=== PATIENT | female | born 1950 | race Caucasian/White ===

== ENCOUNTER 2018-02-17 13:39 | Emergency (ER) | payer MEDICARE ==
[~2018-02-17 13:39] MED LIST: LISI-360 PO; MELA5TAB8 PO; PROM25SU8 PO
[2018-02-17 14:19] VITALS: BP 146/69; PULSE 85; RESP 18; TEMP 98.5; O2SAT 95
--- NOTE | 2018-02-17 14:42 | RADRPT ---
EXAM DATE/TIME: 02/17/2018 14:14 [place] COMPARISON: No previous studies available for comparison. INDICATIONS : Right knee pain, fall. MEDICAL HISTORY : Arthritis. SURGICAL HISTORY : Right meniscus repair ENCOUNTER: Initial ACUITY: 1 day PAIN SCORE: 8/10 LOCATION: Right anterior knee FINDINGS: Degenerative changes lateral compartment with loss of articular cartilage. Small joint effusion. De generative change of patellofemoral compartment. Fracture not appreciated. CONCLUSION: Degenerative changes lateral compartment With trace joint effusion. No fracture or Khang Banks MD FACR on February 17, 2018 at 14:39 Board Certified Radiologist. This report was verified electronically.
[2018-02-17] MEDS ORDERED: TETANUS/DIPHTHERIA TOXOID ADULT 0.5 ML VIAL IM ONE (15:30)
[2018-02-17] MEDS ORDERED: oxyCODONE/ACETAMINOPHEN 5 MG/325 MG TAB PO ONE (15:45)
[2018-02-17] MEDS ORDERED: TYLETAB34 PO (16:24)
[2018-02-17] MEDS ORDERED: CEPH-460 PO (16:24)
--- NOTE | 2018-02-17 16:24 | PD ---
HPI Chief Complaint: Injury Time Seen by Provider: 15:23 Travel History International Travel<30 days: No Contact w/Intl Traveler<30days: No Traveled to known affect area: No History of Present Illness HPI Patient is a 67-year-old female presenting to emerge from for evaluation of right knee pain. Patient states she was cutting her bushes in her yard when she tripped over branch, falling cutting her knee. She states she is able to walk on her knee, the pain was initially a 7 out of 10, she reports it now as a 10 out of 10. She states is aching and throbbing, worse with movement. Her tetanus vaccine is not up-to-date. There was no head injury or loss of consciousness. Patient was not dizzy or short of breath prior to the fall. She has no other complaints at this time. Symptom onset was sudden, symptoms are moderate in nature. PFSH Past Medical History Hypertension: Yes Past Surgical History Gynecologic Surgery: Yes (partial hysterectomy) Other Surgery: Yes (kidney growth removed 2008) Social History Alcohol Use: Yes (wine occassionally) Tobacco Use: No Substance Use: No Allergies-Medications (Allergen,Severity, Reaction): Coded Allergies: No Known Allergies (Unverified Adverse Reaction, Unknown, 02/17/18) Reported Meds & Prescriptions Reported Meds & Active Scripts Active Phenergan (Promethazine HCl) 25 Mg Tab 25 Mg PO Q6H PRN FOR NAUSEA/VOMITING Reported Melatonin (Melatonin-Pyridoxine) Unknown Strength Tab 1 Tab PO HS Lisinopril 10 mg (Lisinopril) 10 Mg Tab 1 Tab PO DAILY Review of Systems Except as stated in HPI: all other systems reviewed are Neg Musculoskeletal: Positive: Myalgias, Arthralgias, Pain Skin: Positive Other Physical Exam Narrative GENERAL: Well-developed, well-nourished, alert female. Presenting in no acute distress. SKIN: Warm and dry. 1.5 cm x 1.5 cm V-shaped laceration to the anterior right knee. HEAD: Atraumatic. Normocephalic. EYES: Pupils equal and round. No scleral icterus. No injection or drainage. ENT: No nasal bleeding or discharge. Mucous membranes pink and moist. NECK: Trachea midline. No JVD. CARDIOVASCULAR: Regular rate and rhythm. RESPIRATORY: No accessory muscle use. Clear to auscultation. Breath sounds equal bilaterally. GASTROINTESTINAL: Abdomen soft, non-tender, nondistended. Hepatic and splenic margins not palpable. MUSCULOSKELETAL: Extremities without clubbing, cyanosis, or edema. No obvious deformities. NEUROLOGICAL: Awake and alert. No obvious cranial nerve deficits. Motor grossly within normal limits. Five out of 5 muscle strength in the arms and legs. Normal speech. PSYCHIATRIC: Appropriate mood and affect; insight and judgment normal. Data Data Last Documented VS Vital Signs Date Time Temp Pulse Resp B/P (MAP) Pulse Ox O2 Delivery O2 Flow Rate FiO2 02/17/18 14:19 98.5 85 18 146/69 (94) 95 Orders Orders Knee, Complete (4vws) (02/17/18 13:49) Tetanus/Diphtheria Tox Adult (Tetanus/Di (02/17/18 15:30) Oxycodone-Acetamin 5-325 Mg (Percocet (02/17/18 15:45) Splint Or Brace Apply/Monitor (02/17/18 16:11) MDM Medical Decision Making Medical Screen Exam Complete: Yes Emergency Medical Condition: Yes Interpretation(s) Last Impressions Knee X-Ray 02/17/18 1349 Signed Impressions: Service Date/Time: Saturday, February 17, 2018 14:14 - CONCLUSION: Degenerative changes lateral compartment With trace joint effusion. No fracture or Khang Banks MD FACR Vital Signs Date Time Temp Pulse Resp B/P (MAP) Pulse Ox O2 Delivery O2 Flow Rate FiO2 02/17/18 14:19 98.5 85 18 146/69 (94) 95 Differential Diagnosis Laceration versus abrasion versus fracture versus sprain versus strain versus other Narrative Course Patient is well-appearing 67-year-old female presenting for evaluation of right knee pain after she sustained a mechanical fall. Patient has a laceration to the anterior knee, base of wound is well visualized, there is no retained foreign bodies. Patient's vital signs are stable. X-ray shows no acute fracture. Small joint effusion noted. Please see procedure report for laceration repair. Patient was given Percocet for pain, her tetanus was updated in the emergency department. Patient be placed in a knee immobilizer to prevent laceration from opening. Patient is encouraged to follow-up with her primary doctor, she is advised to return to emergency department for any new worsening symptoms. She was educated on signs and symptoms of infection. Patient verbalized understanding of instructions. Patient stable for discharge. Patient states that she has a walker at home that she can use to ambulate. Procedures Procedure Narrative LACERATION LOCATION: Right knee LENGTH: 3 cm NUMBER OF STITCHES/MIGUEL: 9 stitches REPAIR: The area of the laceration was prepped with Betadine and sterilely draped. The laceration was infiltrated with 1% lidocaine with epi. The wound was copiously irrigated and explored without evidence of foreign body, tendon injury or neurovascular injury. The wound was closed using 3-0 ethilon. This was a 1 layer repair. A sterile dressing was applied. The patient was advised to keep the dressing clean and dry. Patient tolerated the procedure well. Diagnosis Primary Impression: Fall Qualified Codes: W19.XXXA - Unspecified fall, initial encounter Additional Impressions: Knee effusion, right Laceration of knee Qualified Codes: S81.011A - Laceration without foreign body, right knee, initial encounter Referrals: Primary Care Physician Patient Instructions: Care For Your Stitches (ED), General Instructions, Knee Immobilizer (DC), Swollen Knee Joint (ED) Additional Instructions: Follow-up with your primary doctor Return to emergency department for any new worsening symptoms Take medications as directed Do not drive or operate machinery while taking narcotic pain medication Keep stitches clean and dry Med/Other Pt SpecificInfo: Prescription(s) given Scripts Cephalexin (Keflex) 500 Mg Cap 500 MG PO Q12H for Infection for 7 Days, #14 CAP 0 Refills Prov: Aida Sher 02/17/18 Acetaminophen-Codeine (Tylenol-Codeine #3) 300-30 mg Tab 1 TAB PO Q4H Y for PAIN, #15 TAB 0 Refills Prov: Aida Sher 02/17/18 Disposition: 01 DISCHARGE HOME Condition: Stable Aida Sher Feb 17, 2018 16:24
== END 2018-02-17 16:53 | disposition home or self-care (01) ==
LOC: NEPD 13:39
DX: S81.011A Laceration without foreign body, right knee, initial encounter (principal); W18.09XA Striking against other object with subsequent fall, initial encounter; Y93.H2 Activity, gardening and landscaping; Y92.007 Garden or yard of unspecified non-institutional (private) residence as the place of occurrence of the external cause; Z23 Encounter for immunization
CPT/HCPCS: 12002; 73564; 90471; 90714; 99283; L1830